=== PATIENT | female | born 1930 | race Caucasian/White ===

== ENCOUNTER 2017-03-25 23:34 | Emergency (ER) | payer MEDICARE ==
[~2017-03-25] VITALS: Ht 154.9 cm; Wt 70.6 kg
[~2017-03-25 23:34] MED LIST: ADVA250A INH; ALBU1AER INH; ATEN50 PO; CLIN1CAP5 PO; CLIN1CAP6 PO; LISI20 PO; NEBUKIT4; NIFE20CA PO; SERT-132 PO; SPIRCAP INH; Z.0.OXYGEN INH; Z.0.OXYGENDME NC
[2017-03-25 23:41] VITALS: BP 123/59; PULSE 87; RESP 18; TEMP 99; O2SAT 94
[2017-03-26] MEDS ORDERED: ATEN25TA PO (00:05)
[2017-03-26] MEDS ORDERED: SERT25TA83 PO (00:05)
[2017-03-26] MEDS ORDERED: ADVA250A INH (00:05)
[2017-03-26] MEDS ORDERED: NIFE1TAB PO (00:05)
[2017-03-26] MEDS ORDERED: SPIRCAP INH (00:05)
[2017-03-26] MEDS ORDERED: LISI-515 PO (00:05)
[2017-03-26] MEDS ORDERED: ALBUAER3 INH (00:05)
[2017-03-26] MEDS ORDERED: OXYGENDME NAS.CANULA (00:05)
[2017-03-26 00:08] VITALS: BP 141/55; PULSE 85; RESP 33; O2SAT 95
[2017-03-26] MEDS ORDERED: RESP: ALBUTEROL 2.5 MG/IPRATROPIUM 0.5 MG NEB (SCH) INH ONE (00:30)
[2017-03-26] MEDS ORDERED: SODIUM CHLORIDE 0.9% FLUSH 10 ML FLUSH IVF PRN (00:30)
[2017-03-26 00:31] VITALS: O2SAT 98
--- NOTE | 2017-03-26 00:51 | RADRPT ---
EXAM DATE/TIME: 03/26/2017 00:28 [facility] COMPARISON: CHEST SINGLE AP, February 09, 2015, 13:19. INDICATIONS : Shortness of breath. MEDICAL HISTORY : Hypertension. Chronic obstructive pulmonary disease. Asthma. SURGICAL HISTORY : None. ENCOUNTER: Initial ACUITY: 1 day PAIN SCORE: 0/10 LOCATION: Bilateral chest FINDINGS: A single view of the chest demonstrates the lungs to be symmetrically aerated without evidence of mas s, infiltrate or effusion. The patient's chin obscures portions of both pulmonary apices. Mild tort uosity of the thoracic aorta. The heart is normal size.. Osseous structures are intact. CONCLUSION: The lungs are clear. Paul Yuan MD on March 26, 2017 at 0:49 Board Certified Radiologist. This report was verified electronically.
[2017-03-26 01:06] LABS: AUTOMATED NEUTROPHIL # 5.5 TH/MM3 (1.8-7.7); BASOPHIL % 0.5 % (0.0-2.0); EOSINOPHIL # 0.1 TH/MM3 (0-0.4); EOSINOPHIL % 1.6 % (0.0-4.0); HEMATOCRIT 28.2 % (35.0-46.0); LYMPH % 17.3 % (9.0-44.0); LYMPHOCYTE # 1.4 TH/MM3 (1.0-4.8); MEAN CELL VOLUME 99.6 FL (80.0-100.0); MEAN CORPUSCULAR HEMOGLOBIN 31.9 PG (27.0-34.0); MEAN PLATELET VOLUME 7.3 FL (7.0-11.0); MONO % 12.2 % (0.0-8.0); NEUT % 68.4 % (16.0-70.0); PLATELET COUNT 297 TH/MM3 (150-450); RED BLOOD COUNT 2.83 MIL/MM3 (4.00-5.30); RED CELL DISTRIBUTION WIDTH 22.5 % (11.6-17.2)
[2017-03-26 01:13] LABS: CHLORIDE 100 MEQ/L (98-107); SODIUM (NA) 136 MEQ/L (136-145)
[2017-03-26 01:17] LABS: ALBUMIN 3.6 GM/DL (3.4-5.0); BICARBONATE 29.7 MEQ/L (21.0-32.0); BLOOD UREA NITROGEN 18 MG/DL (7-18); CALCIUM 9.2 MG/DL (8.5-10.1); GLUCOSE,RANDOM 116 MG/DL (74-106); MAGNESIUM 1.9 MG/DL (1.5-2.5)
[2017-03-26 01:19] LABS: INTERNATIONAL NORMALIZED RATIO 1.1 RATIO; PROTHROMBIN TIME - PATIENT 10.7 SEC (9.8-11.6)
[2017-03-26 01:20] LABS: ALT (GPT) 18 U/L (10-53); AST (GOT) 27 U/L (15-37); CREATININE 0.57 MG/DL (0.50-1.00); GLOMERULAR FILTRATION RATE 100 ML/MIN (>89)
[2017-03-26 01:22] LABS: TOTAL BILIRUBIN ADULT 0.6 MG/DL (0.2-1.0); TOTAL PROTEIN 7.7 GM/DL (6.4-8.2)
[2017-03-26 01:23] LABS: ALKALINE PHOSPHATASE 61 U/L (45-117)
[2017-03-26 01:25] LABS: TROPONIN I LESS THAN 0.02 NG/ML (0.02-0.05)
[2017-03-26 01:43] VITALS: BP 115/56; PULSE 90; RESP 24; O2SAT 94
[2017-03-26] MEDS ORDERED: OSELTAMIVIR PHOSPHATE 75 MG CAP PO ONE (02:45)
--- NOTE | 2017-03-26 02:46 | PD ---
HPI Chief Complaint: Respiratory Symptoms Time Seen by Provider: 00:20 Travel History International Travel<30 days: No Contact w/Intl Traveler<30days: No Traveled to known affect area: No History of Present Illness HPI 86-year-old female presents to the emergency department for one day of swelling short of breath and poorly. Caregiver/power of assistant city attorney identifies that she has not felt well since yesterday morning. Patient has history of COPD and is on continuous supplemental oxygen at home. Caregiver noted patient to be more short of breath than usual with minimal exertion and decided to bring her to the emergency room. No report of new lower extremity pain or swelling orthopnea or PND. Caregiver thought patient might have a low-grade fever and was concerned about patient developing pneumonia or CHF. Patient reports that she feels well. PFSH Past Medical History Narrative Medical CVA COPD arthritis hypertension inoperable CEREBRAL aneurysm cataract surgery; no tobacco use alcohol use: Nursing notes reviewed Hx Anticoagulant Therapy: No Arthritis: Yes Asthma: Yes Autoimmune Disease: No Blood Disorders: No Anxiety: No Depression: No Heart Rhythm Problems: No Cancer: No Cardiovascular Problems: No High Cholesterol: No Chemotherapy: No Chest Pain: No Congestive Heart Failure: No COPD: Yes Cerebrovascular Accident: Yes (APR 2009) Coronary Artery Disease: No Diabetes: No Diminished Hearing: Yes Endocrine: No GERD: No Glaucoma: No Genitourinary: No Headaches: No Hepatitis: No Hiatal Hernia: No Hypertension: Yes Immune Disorder: No Kidney Stones: No Musculoskeletal: Yes Neurologic: Yes (INOPERABLE BRAIN ANEURYSM) Psychiatric: No Reproductive: No Respiratory: Yes (COPD) Immunizations Current: Yes Migraines: No Myocardial Infarction: No Radiation Therapy: No Renal Failure: No Seizures: No Shingles: Yes Sickle Cell Disease: No Sleep Apnea: No Thyroid Disease: No Ulcer: No Tetanus Vaccination: < 5 Years Influenza Vaccination: Yes Menopausal: Yes Dilation and Curettage (D&C): Yes Past Surgical History Abdominal Surgery: No AICD: No Appendectomy: No Arteriovenous Shunt: No Cardiac Surgery: No Cholecystectomy: No Ear Surgery: No Endocrine Surgery: No Eye Surgery: Yes (cataract) Genitourinary Surgery: No Gynecologic Surgery: Yes (d&c at 28) Hysterectomy: No Insulin Pump: No Joint Replacement: No Oral Surgery: No Pacemaker: No Thoracic Surgery: No Tonsillectomy: Yes Other Surgery: Yes Social History Alcohol Use: No Tobacco Use: No (quit 40 years ago) Substance Use: No Allergies-Medications (Allergen,Severity, Reaction): Coded Allergies: iodixanol (Verified Allergy, Severe, HIVES, 03/25/17) iohexol (Verified Allergy, Severe, HIVES, 03/25/17) peanut (Verified Allergy, Severe, 03/25/17) Reported Meds & Prescriptions Reported Meds & Active Scripts Active Tamiflu (Oseltamivir Phosphate) 75 Mg Cap 75 Mg PO BID 5 Days Reported Spiriva Handihaler (Tiotropium Inh) 18 Mcg Cap 18 Mcg INH DAILY 1 capsule = 18 mcg Proair Hfa 8.5 GM Inh (Albuterol Sulfate) 90 Mcg/Act Aer 2 Puff INH Q4-6H PRN 108 mcg/actuation Advair Diskus Inh (Fluticasone-Salmeterol Inh) 250-50 Mcg/Blist Aer 1 Puff INH BID Rinse mouth after use. Atenolol 25 Mg Tab 25 Mg PO DAILY Sertraline (Sertraline HCl) 25 Mg Tab 25 Mg PO DAILY Lisinopril 20 Mg Tab 20 Mg PO BID Nifedipine ER 24 HR (Nifedipine) 90 Mg Tab 90 Mg PO DAILY Oxygen (O2) Device Liter GHADA.CANULA CONTINUOUS Oxygen Concentrator Portable Gaseous 2 L/min via Nasal Canula Continuous For 99 months Review of Systems Except as stated in HPI: all other systems reviewed are Neg General / Constitutional: Positive: Fever HENT: Positive: Congestion (subjective) Cardiovascular: No: Chest Pain or Discomfort Respiratory: Positive: Cough Gastrointestinal: No: Vomiting, Abdominal Pain Genitourinary: No: Dysuria, Flank Pain Musculoskeletal: Positive: Myalgias, Arthralgias Skin: No Rash Neurologic: No: Weakness Psychiatric: No: Anxiety Hematologic/Lymphatic: No: Lymph Node Enlargement Physical Exam Narrative GENERAL: Well-developed well-nourished female in no acute distress no respiratory distress SKIN: Warm and dry. HEAD: Normocephalic. EYES: No scleral icterus. No injection or drainage. NECK: Supple, trachea midline. No JVD or lymphadenopathy. CARDIOVASCULAR: Regular rate and rhythm without murmurs, gallops, or rubs. RESPIRATORY: Breath sounds equal bilaterally. No accessory muscle use. GASTROINTESTINAL: Abdomen soft, non-tender, nondistended. MUSCULOSKELETAL: No cyanosis, mild bilateral pedal nonpitting edema. BACK: Nontender without obvious deformity. No CVA tenderness. Data Data Last Documented VS Orders Orders Complete Blood Count With Diff (03/26/17 00:20) Comprehensive Metabolic Panel (03/26/17 00:20) B-Type Natriuretic Peptide (03/26/17 00:20) Act Partial Throm Time (Ptt) (03/26/17 00:20) Prothrombin Time / Inr (Pt) (03/26/17 00:20) Magnesium (Mg) (03/26/17 00:20) Ckmb (Isoenzyme) Profile (03/26/17 00:20) Troponin I (03/26/17 00:20) Influenzae A/B Antigen (03/26/17:20) Blood Culture (03/26/17:20) Iv Access Insert/Monitor (03/26/17 00:20) Electrocardiogram (03/26/17 00:20) Ecg Monitoring (03/26/17 00:20) Oximetry (03/26/17 00:20) Oxygen Administration (03/26/17 00:20) Chest, Single Ap (03/26/17 00:20) Sodium Chloride 0.9% Flush (Ns Flush) (03/26/17 00:30) Albuterol-Ipratropium Neb (Duoneb Neb) (03/26/17 00:30) Oseltamivir (Tamiflu) (03/26/17 02:45) Ed Discharge Order (03/26/17 03:07) Labs Laboratory Tests Test 03/26/17 00:50 White Blood Count 8.0 TH/MM3 Red Blood Count 2.83 MIL/MM3 Hemoglobin 9.0 GM/DL Hematocrit 28.2 % Mean Corpuscular Volume 99.6 FL Mean Corpuscular Hemoglobin 31.9 PG Mean Corpuscular Hemoglobin Concent 32.0 % Red Cell Distribution Width 22.5 % Platelet Count 297 TH/MM3 Mean Platelet Volume 7.3 FL Neutrophils (%) (Auto) 68.4 % Lymphocytes (%) (Auto) 17.3 % Monocytes (%) (Auto) 12.2 % Eosinophils (%) (Auto) 1.6 % Basophils (%) (Auto) 0.5 % Neutrophils # (Auto) 5.5 TH/MM3 Lymphocytes # (Auto) 1.4 TH/MM3 Monocytes # (Auto) 1.0 TH/MM3 Eosinophils # (Auto) 0.1 TH/MM3 Basophils # (Auto) 0.0 TH/MM3 CBC Comment DIFF FINAL Differential Comment Prothrombin Time 10.7 SEC Prothromb Time International Ratio 1.1 RATIO Activated Partial Thromboplast Time 27.5 SEC Blood Urea Nitrogen 18 MG/DL Creatinine 0.57 MG/DL Random Glucose 116 MG/DL Total Protein 7.7 GM/DL Albumin 3.6 GM/DL Calcium Level 9.2 MG/DL Magnesium Level 1.9 MG/DL Alkaline Phosphatase 61 U/L Aspartate Amino Transf (AST/SGOT) 27 U/L Alanine Aminotransferase (ALT/SGPT) 18 U/L Total Bilirubin 0.6 MG/DL Sodium Level 136 MEQ/L Potassium Level 3.9 MEQ/L Chloride Level 100 MEQ/L Carbon Dioxide Level 29.7 MEQ/L Anion Gap 6 MEQ/L Estimat Glomerular Filtration Rate 100 ML/MIN Total Creatine Kinase 86 U/L Troponin I LESS THAN 0.02 NG/ML B-Type Natriuretic Peptide 127 PG/ML MDM Medical Decision Making Medical Screen Exam Complete: Yes Emergency Medical Condition: Yes Medical Record Reviewed: Yes Interpretation(s) EKG normal sinus rhythm rate [address] elevation nonspecific ST segment depression LVH Chest x-ray no lobar infiltrate or vascular congestion CK total 86 not elevated; troponin I less than 0.02, not elevated; BNP 127 pneumonia elevated CBC is automated differential anemia hemoglobin 9.0 Metabolic panel grossly within normal limits Coagulation studies were grossly within normal range Last Impressions Chest X-Ray 03/26/17 0020 Signed Impressions: Service Date/Time: Sunday, March 26, 2017 00:28 - CONCLUSION: The lungs are clear. Paul Yuan MD CBC & BMP Diagram 03/26/17 00:50 Total Protein 7.7, Albumin 3.6, Calcium Level 9.2, Magnesium Level 1.9, Alkaline Phosphatase 61, Aspartate Amino Transf (AST/SGOT) 27, Alanine Aminotransferase (ALT/SGPT) 18, Total Bilirubin 0.6 influenza a/b ag: Influenza a positive Differential Diagnosis Dyspnea, exacerbation COPD, ACS, CHF, influenza, bronchitis, pneumonia also consider PE Narrative Course Patient placed on hall monitor and continuous pulse oximetry IV access obtained specimens collected and sent for resulting patient administered updraft treatment with symptomatic relief Patient given first dose of Tamiflu. Patient comfortable and asymptomatic after updraft treatment. Patient has nebulized solution and rescue inhalers at home patient became prescription for Tamiflu and is otherwise stable for outpatient management Diagnosis Primary Impression: Influenza Additional Impression: COPD (chronic obstructive pulmonary disease) Referrals: Primary Care Physician call for appointment Patient Instructions: General Instructions Additional Instructions: Antipyretic medications as chronically prescribed Use ProAir as needed for wheezing or shortness of breath as prescribed Take Tamiflu as prescribed Increase fluid hydration Follow-up with your primary care provider call office in a.m. to schedule follow -up appointment Return to the emergency department for any concerns or change in condition Med/Other Pt SpecificInfo: Prescription(s) given Scripts Oseltamivir (Tamiflu) 75 Mg Cap 75 MG PO BID for Mgmt Viral Infection for 5 Days, #10 CAP 0 Refills Prov: Analia Villeda MD 03/26/17 Disposition: 01 DISCHARGE HOME Condition: Stable Analia Villeda MD Mar 26, 2017 02:46
[2017-03-26] MEDS ORDERED: OSEL75 PO (02:57)
[2017-03-26 03:10] VITALS: BP 118/58; TEMP 98.4
--- NOTE | 2017-03-26 19:42 | EKG ---
Date Performed: 03/26/2017 Time Performed: 00:45:54 PTAGE: 86 years EKG: Sinus rhythm MINIMAL VOLTAGE CRITERIA FOR LVH, CONSIDER NORMAL VARIANT MODERATE ST DEPRESSION ABNORMAL ECG PREVIOUS TRACING : 02/09/2015 12.28 Since previous tracing, no significant change noted DOCTOR: Samantha Owen Interpretating Date/Time 03/26/2017 19:39:53
== END 2017-03-26 03:35 | disposition home or self-care (01) ==
LOC: PHED 23:34
DX: J10.1 Influenza due to other identified influenza virus with other respiratory manifestations (principal); J44.9 Chronic obstructive pulmonary disease, unspecified; R94.31 Abnormal electrocardiogram [ECG] [EKG]; I10 Essential (primary) hypertension; I25.2 Old myocardial infarction; Z99.81 Dependence on supplemental oxygen
CPT/HCPCS: 71045; 80053; 82550; 83735; 83880; 84484; 85025; 85610; 85730; 87040; 87804; 93005; 94664; 99285

== ENCOUNTER 2017-04-03 19:15 | Emergency (ER) | payer MEDICARE ==
[~2017-04-03] VITALS: Ht 157.5 cm; Wt 70.6 kg
[~2017-04-03 19:15] MED LIST changes: -ALBU1AER INH; +ALBUAER3 INH; +ATEN25TA PO; -ATEN50 PO; -CLIN1CAP5 PO; -CLIN1CAP6 PO; +LISI-515 PO; -LISI20 PO; -NEBUKIT4; +NIFE1TAB PO; -NIFE20CA PO; +OSEL75 PO; +OXYGENDME NAS.CANULA; -SERT-132 PO; +SERT25TA83 PO; -Z.0.OXYGEN INH; -Z.0.OXYGENDME NC
[2017-04-03 19:31] VITALS: BP 164/65; PULSE 71; RESP 20; TEMP 98.3; O2SAT 97
[2017-04-03] MEDS ORDERED: SODIUM CHLORID 0.9% 500 ML INJ 500 ML IV SCH ×2 (19:45→21:15)
--- NOTE | 2017-04-03 19:49 | PD ---
HPI Chief Complaint: Respiratory Symptoms Time Seen by Provider: 19:29 Travel History International Travel<30 days: No Contact w/Intl Traveler<30days: No Traveled to known affect area: No History of Present Illness HPI This patient complains of generalized weakness. She's not been eating or drinking for the last week. She was here week ago and diagnosed with influenza A. She has history of COPD and uses 2 L around the clock. She no longer smokes. She denies fever or chest pain. At this point she is denying short of breath. She just hasn't felt like eating and has felt in general weak. Symptoms severity is moderate. No alleviating factors. Symptoms exacerbated by her documented influenza A. PFSH Past Medical History Hx Anticoagulant Therapy: No Arthritis: Yes Asthma: Yes Autoimmune Disease: No Blood Disorders: No Anxiety: No Depression: No Heart Rhythm Problems: No Cancer: No Cardiovascular Problems: No High Cholesterol: No Chemotherapy: No Chest Pain: No Congestive Heart Failure: No COPD: Yes Cerebrovascular Accident: Yes (APR 2009) Coronary Artery Disease: No Diabetes: No Diminished Hearing: Yes Endocrine: No Gastrointestinal Disorders: No GERD: No Glaucoma: No Genitourinary: No Headaches: No Hepatitis: No Hiatal Hernia: No Heparin Induced Thrombocytopen: No Hypertension: Yes Immune Disorder: No Implanted Vascular Access Dvce: No Kidney Stones: No Musculoskeletal: Yes Neurologic: Yes (INOPERABLE BRAIN ANEURYSM) Psychiatric: No Reproductive: No Respiratory: Yes (COPD) Immunizations Current: Yes Migraines: No Myocardial Infarction: No Radiation Therapy: No Renal Failure: No Seizures: No Shingles: Yes Sickle Cell Disease: No Sleep Apnea: No Thyroid Disease: No Ulcer: No Tetanus Vaccination: < 5 Years Influenza Vaccination: Yes ?: Not Menopausal: Yes Dilation and Curettage (D&C): Yes Past Surgical History Abdominal Surgery: No AICD: No Appendectomy: No Arteriovenous Shunt: No Cardiac Surgery: No Cholecystectomy: No Ear Surgery: No Endocrine Surgery: No Eye Surgery: Yes (cataract) Genitourinary Surgery: No Gynecologic Surgery: Yes (d&c at 28) Hysterectomy: No Insulin Pump: No Joint Replacement: No Neurologic Surgery: No Oral Surgery: No Pacemaker: No Thoracic Surgery: No Tonsillectomy: Yes Other Surgery: Yes Social History Alcohol Use: No Tobacco Use: No (quit 40 years ago) Substance Use: No Allergies-Medications (Allergen,Severity, Reaction): Coded Allergies: iodixanol (Verified Allergy, Severe, HIVES, 04/03/17) iohexol (Verified Allergy, Severe, HIVES, 04/03/17) peanut (Verified Allergy, Severe, 04/03/17) Reported Meds & Prescriptions Reported Meds & Active Scripts Active Macrobid (Nitrofurantoin Monoh/Nitrofur Macro) 100 Mg Cap 100 Mg PO BID Reported Spiriva Handihaler (Tiotropium Inh) 18 Mcg Cap 18 Mcg INH DAILY 1 capsule = 18 mcg Proair Hfa 8.5 GM Inh (Albuterol Sulfate) 90 Mcg/Act Aer 2 Puff INH Q4-6H PRN 108 mcg/actuation Advair Diskus Inh (Fluticasone-Salmeterol Inh) 250-50 Mcg/Blist Aer 1 Puff INH BID Rinse mouth after use. Atenolol 25 Mg Tab 25 Mg PO DAILY Sertraline (Sertraline HCl) 25 Mg Tab 25 Mg PO DAILY Lisinopril 20 Mg Tab 20 Mg PO BID Nifedipine ER 24 HR (Nifedipine) 90 Mg Tab 90 Mg PO DAILY Oxygen (O2) Device Liter GHADA.CANULA CONTINUOUS Oxygen Concentrator Portable Gaseous 2 L/min via Nasal Canula Continuous For 99 months Review of Systems General / Constitutional: No: Fever Eyes: No: Visual changes HENT: No: Headaches Cardiovascular: No: Chest Pain or Discomfort Respiratory: Positive: Cough, No: Shortness of Breath Gastrointestinal: Positive: Loss of Appetite, No: Abdominal Pain Genitourinary: No: Dysuria Musculoskeletal: Positive: Weakness, No: Pain Skin: No Rash Neurologic: Positive: Weakness Psychiatric: No: Depression Endocrine: No: Polydipsia Hematologic/Lymphatic: No: Easy Bruising Physical Exam Narrative GENERAL: Well-nourished, well-developed patient in no apparent distress. SKIN: Focused skin assessment reveals no rash and nodules. Skin is Warm and dry. HEAD: Atraumatic. Normocephalic. EYES: Pupils equal and round. No scleral icterus. No injection or drainage. ENT: No nasal bleeding or discharge. Mucous membranes pink and moist. NECK: Trachea midline. No JVD. CARDIOVASCULAR: Regular rate and rhythm. No murmur appreciated. RESPIRATORY: No accessory muscle use. Some rhonchi but no active wheezing. Breath sounds equal bilaterally. GASTROINTESTINAL: Abdomen soft, non-tender, nondistended. Hepatic and splenic margins not palpable. MUSCULOSKELETAL: No obvious deformities. No clubbing. No cyanosis. Trace symmetric edema in the lower legs, chronic per family. NEUROLOGICAL: Awake and alert. No obvious cranial nerve deficits. Motor grossly within normal limits. Normal speech. PSYCHIATRIC: Appropriate mood and affect; insight and judgment reasonable for age. Data Data Last Documented VS Vital Signs Date Time Temp Pulse Resp B/P (MAP) Pulse Ox O2 Delivery O2 Flow Rate FiO2 04/03/17 21:26 77 18 187/89 (121) 98 Nasal Cannula 2.00 04/03/17 19:31 98.3 Orders Orders Iv Access Insert/Monitor (04/03/17 19:35) Complete Blood Count With Diff (04/03/17 19:35) Comprehensive Metabolic Panel (04/03/17 19:35) Urinalysis - C+S If Indicated (04/03/17 19:35) Cath For Specimen (04/03/17 19:35) Sodium Chlorid 0.9% 500 Ml Inj (Ns 500 M (04/03/17 19:45) Chest, Single Ap (04/03/17 ) Sodium Chlorid 0.9% 500 Ml Inj (Ns 500 M (04/03/17 21:15) Urine Culture (04/03/17 20:48) Labs Laboratory Tests Test 04/03/17 19:45 04/03/17 20:48 White Blood Count 8.6 TH/MM3 Red Blood Count 3.11 MIL/MM3 Hemoglobin 9.8 GM/DL Hematocrit 30.5 % Mean Corpuscular Volume 97.9 FL Mean Corpuscular Hemoglobin 31.5 PG Mean Corpuscular Hemoglobin Concent 32.1 % Red Cell Distribution Width 22.0 % Platelet Count 412 TH/MM3 Mean Platelet Volume 6.9 FL Neutrophils (%) (Auto) 62.1 % Lymphocytes (%) (Auto) 21.6 % Monocytes (%) (Auto) 11.7 % Eosinophils (%) (Auto) 3.5 % Basophils (%) (Auto) 1.1 % Neutrophils # (Auto) 5.3 TH/MM3 Lymphocytes # (Auto) 1.9 TH/MM3 Monocytes # (Auto) 1.0 TH/MM3 Eosinophils # (Auto) 0.3 TH/MM3 Basophils # (Auto) 0.1 TH/MM3 CBC Comment AUTO DIFF Differential Comment AUTO DIFF CONFIRMED Platelet Estimate NORMAL Platelet Morphology Comment NORMAL Target Cells 1+ Ovalocytes 1+ Stomatocytes 1+ Blood Urea Nitrogen 13 MG/DL Creatinine 0.42 MG/DL Random Glucose 103 MG/DL Total Protein 8.0 GM/DL Albumin 3.5 GM/DL Calcium Level 8.9 MG/DL Alkaline Phosphatase 63 U/L Aspartate Amino Transf (AST/SGOT) 32 U/L Alanine Aminotransferase (ALT/SGPT) 25 U/L Total Bilirubin 0.6 MG/DL Sodium Level 131 MEQ/L Potassium Level 3.4 MEQ/L Chloride Level 91 MEQ/L Carbon Dioxide Level 37.1 MEQ/L Anion Gap 3 MEQ/L Estimat Glomerular Filtration Rate 142 ML/MIN Urine Collection Type CATH Urine Color YELLOW Urine Turbidity SLIGHT Urine pH 6.5 Urine Specific [place] 1.010 Urine Protein NEG mg/dL Urine Glucose (UA) NEG mg/dL Urine Ketones NEG mg/dL Urine Occult Blood MOD Urine Nitrite NEG Urine Bilirubin NEG Urine Leukocyte Esterase MOD Urine RBC 4-9 /hpf Urine WBC 25-49 /hpf Urine Squamous Epithelial Cells 0-5 /hpf Urine Amorphous Sediment MOD Urine Mucus FEW /lpf Microscopic Urinalysis Comment CULTURE INDICATED MDM Medical Decision Making Medical Screen Exam Complete: Yes Emergency Medical Condition: Yes Medical Record Reviewed: Yes Differential Diagnosis Dehydration, electrolyte abnormality, pneumonia Narrative Course I have reviewed the patient's electronic medical record. Reviewed her workup from a days ago here including labs and x-ray and positive influenza swab IV placed I gave her a half liter of normal saline IV CBC shows normal white count and anemia which is slightly improved from prior Metabolic profile shows mild hyponatremia LFTs are normal Catheterized urine shows 25-50 white cells I reviewed her chest x-ray which shows minor atelectasis without consolidation I gave her a second half liter of saline She is euvolemic and has urinated multiple times Saturations remained 99% on her usual 2 L I wrote her some Macrobid given the urinary findings and her symptoms presentation which includes a vague malaise and weakness Blood pressure is 190 systolic. They are to give her meds which she has skipped since she was here instead of at home when she gets home and check and record daily Diagnosis Primary Impression: Dehydration, moderate Additional Impressions: COPD (chronic obstructive pulmonary disease) Qualified Codes: J44.9 - Chronic obstructive pulmonary disease, unspecified Generalized weakness Pyuria Additional Instructions: Check and record blood pressure daily The patient was advised to follow up with their physician and return if they worsen. Med/Other Pt SpecificInfo: Prescription(s) given Scripts Nitrofurantoin Monohydrate Macrocrystals (Macrobid) 100 Mg Cap 100 MG PO BID for Infection, #10 CAP 0 Refills Prov: Wesley Aj MD 04/03/17 Disposition: 01 DISCHARGE HOME Condition: Stable Wesley Aj MD Apr 03, 2017 19:49
[2017-04-03 19:56] LABS: AUTOMATED NEUTROPHIL # 5.3 TH/MM3 (1.8-7.7); BASOPHIL # 0.1 TH/MM3 (0-0.2); BASOPHIL % 1.1 % (0.0-2.0); EOSINOPHIL # 0.3 TH/MM3 (0-0.4); EOSINOPHIL % 3.5 % (0.0-4.0); HEMATOCRIT 30.5 % (35.0-46.0); HEMOGLOBIN 9.8 GM/DL (11.6-15.3); LYMPH % 21.6 % (9.0-44.0); LYMPHOCYTE # 1.9 TH/MM3 (1.0-4.8); MEAN CELL VOLUME 97.9 FL (80.0-100.0); MEAN CORPUSCULAR HEMOGLOBIN 31.5 PG (27.0-34.0); MEAN CORPUSCULAR HGB CONC 32.1 % (32.0-36.0); MEAN PLATELET VOLUME 6.9 FL (7.0-11.0); MONO % 11.7 % (0.0-8.0); NEUT % 62.1 % (16.0-70.0); PLATELET COUNT 412 TH/MM3 (150-450); RED BLOOD COUNT 3.11 MIL/MM3 (4.00-5.30); WHITE BLOOD COUNT 8.6 TH/MM3 (4.0-11.0)
[2017-04-03 20:07] LABS: CHLORIDE 91 MEQ/L (98-107); SODIUM (NA) 131 MEQ/L (136-145)
[2017-04-03 20:10] LABS: ALBUMIN 3.5 GM/DL (3.4-5.0); BICARBONATE 37.1 MEQ/L (21.0-32.0); CALCIUM 8.9 MG/DL (8.5-10.1); GLUCOSE,RANDOM 103 MG/DL (74-106)
[2017-04-03 20:11] LABS: BLOOD UREA NITROGEN 13 MG/DL (7-18)
[2017-04-03 20:13] LABS: ALT (GPT) 25 U/L (10-53); AST (GOT) 32 U/L (15-37)
[2017-04-03 20:14] LABS: CREATININE 0.42 MG/DL (0.50-1.00); GLOMERULAR FILTRATION RATE 142 ML/MIN (>89)
[2017-04-03 20:15] LABS: TOTAL BILIRUBIN ADULT 0.6 MG/DL (0.2-1.0)
[2017-04-03 20:16] LABS: ALKALINE PHOSPHATASE 63 U/L (45-117)
[2017-04-03 20:19] LABS: OVALOCYTES 1+ (NORMAL); STOMATOCYTES 1+ (NORMAL); TARGET CELLS 1+ (NORMAL)
--- NOTE | 2017-04-03 20:33 | RADRPT ---
EXAM DATE/TIME: 04/03/2017 20:15 [facility] COMPARISON: CHEST SINGLE AP, March 26, 2017, 0:28. INDICATIONS : Cough and weakness for 1 week. MEDICAL HISTORY : Hypertension. Chronic obstructive pulmonary disease. Asthma. SURGICAL HISTORY : None. ENCOUNTER: Initial ACUITY: 1 week PAIN SCORE: 0/10 LOCATION: Bilateral chest FINDINGS: Minimal streakiness is noted within left lung base consistent with possible atelectasis, minimal infi ltrate or scarring. The heart is stable. The right lung is clear. CONCLUSION: Minimal streakiness is noted within left lung base consistent with possible atelecta sis, minimal infiltrate or scarring. Dagoberto Poe MD on April 03, 2017 at 20:29 Board Certified Radiologist. This report was verified electronically.
[2017-04-03 21:01] LABS: BILIRUBIN, URINE NEG (NEG); BLOOD, URINE MOD (NEG); GLUCOSE,URINE NEG (NEG); KETONE, URINE NEG (NEG); NITRITE,URINE NEG (NEG); PH, URINE 6.5 (5.0-8.5); URINE LEUKOCYTE ESTERASE MOD (NEG)
[2017-04-03 21:26] VITALS: BP 187/89; PULSE 77; RESP 18; O2SAT 2; O2SAT 98
[2017-04-03 21:27] LABS: URINE COLOR YELLOW (YELLW/STRAW)
[2017-04-03 21:28] LABS: MUCUS URINE FEW /lpf (OCC)
[2017-04-03 21:29] LABS: AMORPHOUS SEDIMENT, URINE MOD; SQUAMOUS EPITHELIAL CELL URINE 0-5 /hpf (0-5)
[2017-04-03] MEDS ORDERED: MACR100C2 PO (22:17)
[2017-04-03 22:50] VITALS: BP 169/88; PULSE 78; RESP 18; O2SAT 97
== END 2017-04-03 22:53 | disposition home or self-care (01) ==
LOC: PHED 19:15
DX: E86.0 Dehydration (principal); J44.9 Chronic obstructive pulmonary disease, unspecified; I10 Essential (primary) hypertension; N39.0 Urinary tract infection, site not specified; Z86.73 Personal history of transient ischemic attack (TIA), and cerebral infarction without residual deficits; Z87.891 Personal history of nicotine dependence; Z79.899 Other long term (current) drug therapy
CPT/HCPCS: 71045; 80053; 81001; 85025; 87086; 96360; 99284; J7040; P9612